=== PATIENT | male | born 1980 | race Asian ===

== ENCOUNTER 2019-08-31 15:28 | Emergency (ER) | payer MEDICAID ==
[~2019-08-31] VITALS: Ht 185.4 cm; Wt 72.6 kg
[~2019-08-31 15:28] MED LIST: ZYPREXA10 MG ORAL
[2019-08-31] MEDS ORDERED: LORazepam Inj 2mg/ml 1ml IV ONE (15:45)
--- NOTE | 2019-08-31 15:55 | NUR ---
ED Nurse Note: Patient brought in to ER by ambulance from street due to behavioral complaint. per EMS, pt has half naked and screaming at people on the street but without physical aggression. [employer] accompanied to assist pt but pt is not on hold. pt aao x2-3, restless, anxious, talkative, diaphoretic, disoriented, confused but follows commands. pt was able to ambulate from gurney to ER bed with assist. appearance inappropriate dishevled. pt unable to participate on mini cog due to severe agitation. pt repeated "I am homeless, I have leg cramps." pt denied thought of hurting himself or others. pt is in gown and on cardiac tech. pt able to provide urine sample. urine sent to lab.
--- NOTE | 2019-08-31 16:02 | NUR ---
ED Nurse Note: Patient tolerating oral intake without N/V. Provided water at bedside.
[2019-08-31 16:03] VITALS: BP 142/71
[2019-08-31 16:07] LABS: APPEARANCE,URINE CLEAR; BILIRUBIN, URINE NEGATIVE (NEGATIVE); COLOR,URINE YELLOW; GLUCOSE, URINE (UA) NEGATIVE (NEGATIVE); KETONES,URINE NEGATIVE (NEGATIVE); LEUKOCYTE ESTERASE ,URINE NEGATIVE (NEGATIVE); NITRITE,URINE NEGATIVE (NEGATIVE); PH,URINE 7 (4.5-8.0); PROTEIN,URINE NEGATIVE (NEGATIVE); UROBILINOGEN,URINE 1 MG/DL (0.0-1.0)
[2019-08-31 16:15] LABS: EOSINOPHILS % (AUTO) 1.4 % (0.0-3.0); HEMATOCRIT 45.5 % (42.0-52.0); HEMOGLOBIN 15.9 G/DL (14.2-18.0); LYMPHOCYTES % (AUTO) 12.4 % (20.0-45.0); MEAN CORPUSCULAR VOLUME 91 FL (80-99); MONOCYTES % (AUTO) 4.4 % (1.0-10.0); NEUTROPHILS % (AUTO) 80.9 % (45.0-75.0); PLATELET COUNT 285 K/UL (150-450); RED BLOOD COUNT 4.98 M/UL (4.70-6.10); RED CELL DISTRIBUTION WIDTH 10.8 % (11.6-14.8); WHITE BLOOD COUNT 17.7 K/UL (4.8-10.8)
[2019-08-31 16:45] LABS: ANION GAP 19 mmol/L (5-15); BLOOD UREA NITROGEN 15 mg/dL (7-18); CALCIUM 10.3 MG/DL (8.5-10.1); CARBON DIOXIDE 23 MMOL/L (21-32); CHLORIDE 100 MMOL/L (98-107); POTASSIUM 4.5 MMOL/L (3.5-5.1); SODIUM 142 MMOL/L (136-145)
--- NOTE | 2019-08-31 16:47 | NUR ---
ED Nurse Note: pt tries to get up but able to be redirected by verbal direction. pt was assisted back to bed and laid down.
[2019-08-31 16:58] LABS: ALANINE AMINOTRANSFERASE 39 U/L (12-78); ALBUMIN 4.9 G/DL (3.4-5.0); ALBUMIN/GLOBULIN RATIO 1.5 (1.0-2.7); ALKALINE PHOSPHATASE 90 U/L (46-116); ASPARTATE AMINO TRANSFERASE 44 U/L (15-37); BILIRUBIN,TOTAL 0.9 MG/DL (0.2-1.0); CREATINE KINASE 875 U/L (26-308)
[2019-08-31 18:02] VITALS: BP 110/74
--- NOTE | 2019-08-31 18:03 | NUR ---
ED Nurse Note: pt sleeping in bed with s/s of distress.
--- NOTE | 2019-08-31 18:28 | Emergency Room Report ---
History of Present Illness General Chief Complaint: Behavioral Complaint Source: EMS (Ji Aguilera MD) Present Illness HPI Patient brought in via EMS with [employer]. He was acting bizarrely in the field. He did not answer paramedics. They say they were almost going to give him Versed but elected not to. They also state that they were unable to get vital signs on the patient. An Accu-Chek was not obtained. Patient not answering questions at this time. (Ji Aguilera MD) Allergies: Coded Allergies: No Known Allergies (Unverified , 08/02/19) Patient History Limited by: medical condition Past Medical History: see triage record Social History: Reports: smoking, alcohol use, drug use Social History Narrative Homeless Reviewed Nursing Documentation: PMH: Agreed; PSxH: Agreed (Ji Aguilera MD) Nursing Documentation-PMH Past Medical History: No Stated History (Ji Aguilera MD) Review of Systems All Other Systems: limited (Ji Aguilera MD) Physical Exam Vital Signs Date Time Temp Pulse Resp B/P (MAP) Pulse Ox O2 Delivery O2 Flow Rate FiO2 08/31/19 15:22 98.4 163 22 150/79 (102) 97 Room Air Sp02 EP Interpretation: reviewed, normal General Appearance: alert, other - Somewhat disheveled Head: normocephalic, atraumatic Eyes: bilateral eye PERRL, bilateral eye EOMI, bilateral eye Scleral Injection ENT: moist mucus membranes Neck: supple Respiratory: lungs clear, normal breath sounds Cardiovascular #1: tachycardia Cardiovascular #2: 2+ radial (L) Gastrointestinal: normal inspection, non tender, no mass, non-distended, decreased bowel sounds, scaphoid Genitourinary: no CVA tenderness Musculoskeletal: back normal, normal range of motion, gait/station normal Neurologic: alert, oriented - X2, oriented x3, grossly normal Psychiatric: anxious Skin: warm/dry, other - Acne (Ji Aguilera MD) Medical Decision Making Diagnostic Impression: Primary Impression: Amphetamine abuse Additional Impression: Renal insufficiency ER Course Patient presents with EMS and [employer] with abnormal behavior. Differential includes substance abuse, electrolyte and normality, exacerbation of underlying psychiatric illness amongst others. Evaluation with EKG and labs. Treatment with IV hydration and Ativan. Patient placed on pvc monitor. Initially restraints were ordered however not necessary as patient is compliant. EKG no injury. Sinus tachycardia. Improved from initial vital signs. Labs significant for leukocytosis, renal insufficiency and mildly elevated CK. Sleeping [address] easily. Denies SI or HI. Appropriate mentation. Patient denies prior psychiatric history or treatment. Repeat labs. 2204 Patient signed out to Dr. Bourgeois. Laboratory Tests Test 08/31/19 15:30 08/31/19 16:00 08/31/19 22:30 Urine Color Yellow Urine Appearance Clear Urine pH 7 (4.5-8.0) Urine Specific [place] 1.010 (1.005-1.035) Urine Protein Negative (NEGATIVE) Urine Glucose (UA) Negative (NEGATIVE) Urine Ketones Negative (NEGATIVE) Urine Blood Negative (NEGATIVE) Urine Nitrite Negative (NEGATIVE) Urine Bilirubin Negative (NEGATIVE) Urine Urobilinogen 1 MG/DL (0.0-1.0) H Urine Leukocyte Esterase Negative (NEGATIVE) Urine Opiates Screen Negative (NEGATIVE) Urine Barbiturates Screen Negative (NEGATIVE) Phencyclidine (PCP) Screen Negative (NEGATIVE) Urine Amphetamines Screen Positive (NEGATIVE) H Urine Benzodiazepines Screen Negative (NEGATIVE) Urine Cocaine Screen Negative (NEGATIVE) Urine Marijuana (THC) Screen Negative (NEGATIVE) White Blood Count 17.7 K/UL (4.8-10.8) H 11.5 K/UL (4.8-10.8) H Red Blood Count 4.98 M/UL (4.70-6.10) 4.39 M/UL (4.70-6.10) L Hemoglobin 15.9 G/DL (14.2-18.0) 14.4 G/DL (14.2-18.0) Hematocrit 45.5 % (42.0-52.0) 40.4 % (42.0-52.0) L Mean Corpuscular Volume 91 FL (80-99) 92 FL (80-99) Mean Corpuscular Hemoglobin 32.0 PG (27.0-31.0) H 32.8 PG (27.0-31.0) H Mean Corpuscular Hemoglobin Concent 35.0 G/DL (32.0-36.0) 35.6 G/DL (32.0-36.0) Red Cell Distribution Width 10.8 % (11.6-14.8) L 11.2 % (11.6-14.8) L Platelet Count 285 K/UL (150-450) 203 K/UL (150-450) Mean Platelet Volume 6.7 FL (6.5-10.1) 6.9 FL (6.5-10.1) Neutrophils (%) (Auto) 80.9 % (45.0-75.0) H 81.3 % (45.0-75.0) H Lymphocytes (%) (Auto) 12.4 % (20.0-45.0) L 12.2 % (20.0-45.0) L Monocytes (%) (Auto) 4.4 % (1.0-10.0) 4.9 % (1.0-10.0) Eosinophils (%) (Auto) 1.4 % (0.0-3.0) 0.8 % (0.0-3.0) Basophils (%) (Auto) 1.0 % (0.0-2.0) 0.9 % (0.0-2.0) Sodium Level 142 MMOL/L (136-145) 141 MMOL/L (136-145) Potassium Level 4.5 MMOL/L (3.5-5.1) 4.3 MMOL/L (3.5-5.1) Chloride Level 100 MMOL/L (98-107) 107 MMOL/L (98-107) Carbon Dioxide Level 23 MMOL/L (21-32) 22 MMOL/L (21-32) Anion Gap 19 mmol/L (5-15) H 12 mmol/L (5-15) Blood Urea Nitrogen 15 mg/dL (7-18) 13 mg/dL (7-18) Creatinine 2.0 MG/DL (0.55-1.30) H 1.4 MG/DL (0.55-1.30) H Estimate Glomerular Filtration Rate 37.8 mL/min (>60) 57.0 mL/min (>60) Glucose Level 177 MG/DL (74-106) H 85 MG/DL (74-106) Calcium Level 10.3 MG/DL (8.5-10.1) H 8.5 MG/DL (8.5-10.1) Total Bilirubin 0.9 MG/DL (0.2-1.0) 0.8 MG/DL (0.2-1.0) Aspartate Amino Transferase (AST) 44 U/L (15-37) H 38 U/L (15-37) H Alanine Aminotransferase (ALT) 39 U/L (12-78) 31 U/L (12-78) Alkaline Phosphatase 90 U/L (46-116) 75 U/L (46-116) Total Creatine Kinase 875 U/L (26-308) H 935 U/L (26-308) H Troponin I 0.004 ng/mL (0.000-0.056) Total Protein 8.2 G/DL (6.4-8.2) 6.4 G/DL (6.4-8.2) Albumin 4.9 G/DL (3.4-5.0) 3.6 G/DL (3.4-5.0) Globulin 3.3 g/dL 2.8 g/dL Albumin/Globulin Ratio 1.5 (1.0-2.7) 1.3 (1.0-2.7) Thyroid Stimulating Hormone (TSH) 1.423 uiU/mL (0.358-3.740) Salicylates Level 1.3 ug/mL (2.8-20) L Acetaminophen Level < 2 MCG/ML (10-30) L Serum Alcohol < 3 mg/dL (Ji Aguilera MD) ER Course Patient signed out to me. He presents with altered mental status secondary to methamphetamine abuse. He show evidence of acute kidney injury and dehydration from the drug use. Improved after IV fluids. Will discharge home. He has no suicidal thoughts homicidal thought. No criteria for 5150. (Kain Bourgeois MD) EKG Diagnostic Results Rate: tachycardiac Rhythm: NSR ST Segments: no acute changes (Ji Aguilera MD) Rhythm Strip Diag. Results EP Interpretation: yes Rhythm: NSR, no PVC's, no ectopy, other - Sinus tachycardia (Ji Aguilera MD) Last Vital Signs Date Time Temp Pulse Resp B/P (MAP) Pulse Ox O2 Delivery O2 Flow Rate FiO2 08/31/19 22:00 98.6 90 16 130/81 99 Room Air Status: improved (Ji Aguilera MD) Status: improved (Kain Bourgeois MD) Disposition: HOME, SELF-CARE Condition: Improved Referrals: NON PHYSICIAN (PCP) Ji Aguilera MD Aug 31, 2019 18:28 Kain Bourgeois MD Aug 31, 2019 23:11
--- NOTE | 2019-08-31 19:15 | NUR ---
HAND-OFF: Report given to HAO Dawson. no orders to carry at this moment. pt sleeping in bed without s/s of distress.
[2019-08-31 20:00] VITALS: BP 121/78
--- NOTE | 2019-08-31 21:09 | NUR ---
ED Nurse Note: Pt resting in bed with eyes closed, non-labored breathing, no signs of distress. will continue to monitor
[2019-08-31 22:00] VITALS: BP 130/81
[2019-08-31 22:57] LABS: BASOPHILS % (AUTO) 0.9 % (0.0-2.0); EOSINOPHILS % (AUTO) 0.8 % (0.0-3.0); HEMATOCRIT 40.4 % (42.0-52.0); HEMOGLOBIN 14.4 G/DL (14.2-18.0); LYMPHOCYTES % (AUTO) 12.2 % (20.0-45.0); MEAN CORPUSCULAR VOLUME 92 FL (80-99); MONOCYTES % (AUTO) 4.9 % (1.0-10.0); NEUTROPHILS % (AUTO) 81.3 % (45.0-75.0); PLATELET COUNT 203 K/UL (150-450); RED BLOOD COUNT 4.39 M/UL (4.70-6.10); RED CELL DISTRIBUTION WIDTH 11.2 % (11.6-14.8); WHITE BLOOD COUNT 11.5 K/UL (4.8-10.8)
[2019-08-31 23:06] LABS: ANION GAP 12 mmol/L (5-15); BLOOD UREA NITROGEN 13 mg/dL (7-18); CALCIUM 8.5 MG/DL (8.5-10.1); CARBON DIOXIDE 22 MMOL/L (21-32); CHLORIDE 107 MMOL/L (98-107); CREATININE 1.4 MG/DL (0.55-1.30); POTASSIUM 4.3 MMOL/L (3.5-5.1); SODIUM 141 MMOL/L (136-145)
[2019-08-31 23:11] LABS: ALANINE AMINOTRANSFERASE 31 U/L (12-78); ALBUMIN 3.6 G/DL (3.4-5.0); ALBUMIN/GLOBULIN RATIO 1.3 (1.0-2.7); ALKALINE PHOSPHATASE 75 U/L (46-116); ASPARTATE AMINO TRANSFERASE 38 U/L (15-37); BILIRUBIN,TOTAL 0.8 MG/DL (0.2-1.0); CREATINE KINASE 935 U/L (26-308)
--- NOTE | 2019-09-01 | NUR ---
ER DISCHARGE NOTE: Patient is cleared to be discharged per ERMD, pt is aox4, on room air, with stable vital signs. pt was given dc and prescription instructions, pt was able to verbalize understanding, pt id band and iv site removed without complications. pt is able to ambulate with steady gait. pt took all belongings.
== END 2019-09-01 | disposition home or self-care (01) ==
LOC: EDBD 15:28 → EMR 16:47
DX: F15.10 Other stimulant abuse, uncomplicated (principal); N28.9 Disorder of kidney and ureter, unspecified; R00.0 Tachycardia, unspecified; F17.200 Nicotine dependence, unspecified, uncomplicated; D72.829 Elevated white blood cell count, unspecified
CPT/HCPCS: 36415; 80053; 80307; 81003; 82550; 84443; 84484; 85025; 93005; 96361; 96374; G0480; G0481; J7030; Z7502; 99284